=== PATIENT | female | born 1990 | race Caucasian/White ===

== ENCOUNTER 2017-03-24 23:55 | Emergency (ER) | payer MEDICAID ==
[2017-03-25 00:08] VITALS: BP 124/72
--- NOTE | 2017-03-25 00:13 | EDM.PDOC ---
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 This is been going on for the last couple of days. Currently about a week or so ago she had unprotected intercourse. And over the last couple of days has been developing his symptoms. She has a mild to moderate discomfort sometimes aggravated with voiding. And she has a greenish vaginal discharge. Patient denies any fevers or chills no nausea vomiting diarrhea or constipation Vaginal Pain Score (Numeric/FACES): 4 - Related Data Allergies Allergy/AdvReac Type Severity Reaction Status Date / Time No Known Allergies Allergy Verified 03/25/17 00:08 Home Meds: Home Meds metroNIDAZOLE [Flagyl] 500 mg PO Q12H #14 tablet 03/25/17 [Rx] Past Medical History - Past Health History Medical/Surgical History: Denies Medical/Surgical History Social & Family History - Tobacco Use Smoking Status *Q: Never Smoker Second Hand Smoke Exposure: No - Caffeine Use Caffeine Use: Reports: None - Recreational Drug Use Recreational Drug Use: No ED ROS GENERAL - Review of Systems Review Of Systems: See Below Constitutional: Denies: No Symptoms, Fever, Chills HEENT: Reports: No Symptoms Respiratory: Reports: No Symptoms Cardiovascular: Reports: No Symptoms GI/Abdominal: Reports: No Symptoms : Reports: Discharge, Dysuria, Pain. Denies: Flank Pain, Frequency, Hematuria , Irregular Menses, Urgency, Urinary Retention Musculoskeletal: Reports: No Symptoms Skin: Reports: No Symptoms Neurological: Reports: No Symptoms ED EXAM, RENAL/ - Physical Exam Exam: See Below Exam Limited By: No Limitations General Appearance: Alert, No Apparent Distress Head: Atraumatic, Normocephalic Neck: Normal Inspection, Supple, Non-Tender, Full Range of Motion Respiratory/Chest: No Respiratory Distress, Lungs Clear, Normal Breath Sounds Cardiovascular: Regular Rate, Rhythm, No Edema, No Murmur GI/Abdominal: Normal Bowel Sounds, Soft, Non-Tender, No Organomegaly, No Distention, No Abnormal Bruit, No Mass (Female) Exam: Normal External Exam, Normal Bimanual Exam, Cervical Discharge , Other (The patient is a large amount yellow-green discharge. Samples for GC a and Chlamydia obtained from the cervix WILLIE and wet mount obtained bimanual exam is unremarkable). No: Adnexal Mass, Adnexal Tenderness Neurological: Alert, Oriented Psychiatric: Normal Affect Course - Vital Signs Last Recorded V/S: Last Vital Signs Temp 36.3 C 03/25/17 00:04 Pulse 57 L 03/25/17 00:04 Resp 18 03/25/17 00:04 BP 124/72 03/25/17 00:04 Pulse Ox 100 03/25/17 00:04 - Orders/Labs/Meds Orders: Active Orders 24 hr Category Date Time Status GC/CHLAMYDIA BY PCR [MOLEC] Stat Lab 03/25/17 01:25 Received Labs: Laboratory Tests 03/25/17 03/25/17 03/25/17 Range/Units 00:58 00:58 02:35 Urine Color Yellow Yellow (Yellow) Urine Appearance Clear Clear (Clear) Urine pH 6.0 6.5 (5.0-8.0) Ur Specific [place] > or = 1.030 1.020 (1.005-1.030) Urine Protein Trace H Negative (Negative) Urine Glucose (UA) Negative Negative (Negative) Urine Ketones 1+ H Negative (Negative) Urine Occult Blood Negative Negative (Negative) Urine Nitrite Negative Negative (Negative) Urine Bilirubin Negative Negative (Negative) Urine Urobilinogen 0.2 0.2 (0.2-1.0) Ur Leukocyte Esterase 1+ H Trace H (Negative) Urine RBC 0-5 0-5 (0-5) /hpf Urine WBC 20-30 H 5-10 H (0-5) /hpf Ur Epithelial Cells Not Reportable Not Reportable Ur Squamous Epith Cells 0-5 0-5 (0-5) /hpf Urine Bacteria Moderate H Few (FEW) /hpf Urine Mucus Moderate H Few (FEW) /hpf Urine HCG, Qual Negative (NEGATIVE) - Re-Assessments/Exams Free Text/Narrative Re-Assessment/Exam: 03/25/17 02:49 Wet prep positive for trichomoniasis WILLIE negative awaiting testing for GC and Chlamydia 03/25/17 02:58 First urine was suspicious of contamination given it was a clean catch. Repeat urine was obtained with a catheter specimen that looks much better however is still cannot exclude urinary tract infection. At this time will not treat for UTI will await cultures and sensitivities for this. For the patient's cervicitis she'll receive a gram of Zithromax 250 mg of Rocephin. For the Trichomonas tomorrow she will start Flagyl 500 mg twice daily for one week. Departure - Departure Time of Disposition: 03:03 Disposition: Home, Self-Care 01 Clinical Impression: Cervicitis, Trichomonas vaginalis infection - Discharge Information Prescriptions: metroNIDAZOLE [Flagyl] 500 mg PO Q12H #14 tablet Instructions: Sexually Transmitted Disease, [id number] Forms: ED Department Discharge Additional Instructions: Return to the emergency room with any questions or problems. Here in the emergency department you received Rocephin this is a antibiotic, the one that was injected. You also received Zithromax orally a second antibiotic. Your given a prescription for Flagyl this is another antibiotic you'll take this twice daily until all gone. You have a urine culture pending, would not treat for a urinary tract infection at this time unless the culture confirms the presence of infection. Followup in the hospital clinic in one to 2 weeks for recheck. [id number] - My Orders Last 24 Hours: My Active Orders 03/25/17 01:25 GC/CHLAMYDIA BY PCR [MOLEC] Stat - Assessment/Plan Last 24 Hours: My Active Orders 03/25/17 01:25 GC/CHLAMYDIA BY PCR [MOLEC] Stat
[2017-03-25 02:59] LABS: C. TRACHOMATIS BY PCR NOT DETECTED; N. GONORRHOEAE BY PCR NOT DETECTED
[2017-03-25] MEDS ORDERED: cefTRIAXone 250 MG Vial IM ONE (03:01)
[2017-03-25] MEDS ORDERED: Azithromycin 250 MG Tab PO ONE (03:01)
[2017-03-25] MEDS ORDERED: cefTRIAXone 250 MG, Lidocaine 1% 0.5 ML IM ONE ×2 (03:05)
== END 2017-03-25 03:23 | disposition home or self-care (01) ==
LOC: JD.ED 23:55 → MERGE 23:55 → JD.ED 03-25 03:23
DX: A59.01 Trichomonal vulvovaginitis (principal); N72 Inflammatory disease of cervix uteri
CPT/HCPCS: 81001; 81025; 87086; 87210; 87220; 87491; 87591; 87808; 96372; 99284; A9270; J0696; P9612; 99283

== ENCOUNTER 2017-10-25 20:30 | Emergency (ER) | payer MEDICAID ==
[2017-10-25 20:51] VITALS: BP 114/68
--- NOTE | 2017-10-25 20:54 | EDM.PDOC ---
ED HPI GENERAL MEDICAL PROBLEM - General Chief Complaint: ENT Problem Stated Complaint: SORE THROAT Time Seen by Provider: 10/25/17 20:53 Source of Information: Reports: Patient - History of Present Illness INITIAL COMMENTS - FREE TEXT/NARRATIVE: Patient is here for evaluation of sore throat. She states that she has had this for 2 days. She denies any other symptoms, no sinus respiratory or GI symptoms. Patient reports that she does get strep throat on a frequent basis, she states that she wants to have her tonsils out but she just moved here from [facility] and is unsure how to go about this. Patient relocated to the [facility] as that's what her brother lives. She is currently working up [employer]. Patient denies any chronic medical conditions is not on any medications on a regular basis. Patient declines any pain medication. throat Pain Score (Numeric/FACES): 5 - Related Data Allergies Allergy/AdvReac Type Severity Reaction Status Date / Time No Known Allergies Allergy Verified 10/25/17 20:51 Home Meds: Home Meds . [No Known Home Meds] 10/25/17 [History] Past Medical History - Past Health History Medical/Surgical History: Denies Medical/Surgical History HEENT History: Reports: Other (See Below) Other HEENT History: wisdom teeth Social & Family History - Family History Family Medical History: Noncontributory - Tobacco Use Smoking Status *Q: Never Smoker Second Hand Smoke Exposure: No - Caffeine Use Caffeine Use: Reports: Soda - Recreational Drug Use Recreational Drug Use: No ED ROS ENT - Review of Systems Review Of Systems: See Below Constitutional: Denies: Fever, Chills, Weakness, Fatigue HEENT: Reports: Throat Pain, Throat Swelling. Denies: Nose Pain, Rhinitis, Sinus Problem, Vertigo Respiratory: Reports: No Symptoms Cardiovascular: Reports: No Symptoms GI/Abdominal: Reports: No Symptoms Skin: Reports: No Symptoms ED EXAM, ENT - Physical Exam Exam: See Below Exam Limited By: No Limitations General Appearance: Alert, WD/WN, No Apparent Distress Ears: Normal External Exam, Normal Canal, Normal TMs Nose: Normal Inspection, Normal Mucousa Mouth/Throat: Normal Inspection, Normal Gums, Normal Teeth, Tonsillar Erythema, Tonsillar Swelling (3+). No: Tonsillar Exudates Head: Atraumatic, Normocephalic Neck: Normal Inspection, Supple, Full Range of Motion. No: Lymphadenopathy (L) , Lymphadenopathy (R) Respiratory/Chest: No Respiratory Distress, Lungs Clear, Normal Breath Sounds, No Accessory Muscle Use Cardiovascular: Normal Peripheral Pulses, Regular Rate, Rhythm, No Murmur GI/Abdominal: Normal Bowel Sounds, Soft, Non-Tender Neurological: Alert, Oriented Psychiatric: Normal Affect, Normal Mood Skin: Warm, Dry, Intact Lymphatic: No Adenopathy Course - Vital Signs Last Recorded V/S: Last Vital Signs Temp 97.5 F 10/25/17 20:49 Pulse 72 10/25/17 20:49 Resp 18 10/25/17 20:49 BP 114/68 10/25/17 20:49 Pulse Ox 99 10/25/17 20:49 - Orders/Labs/Meds Orders: Active Orders 24 hr Category Date Time Status CULTURE STREP A CONFIRMATION [RM] Stat Lab 10/25/17 20:55 Results STREP SCRN A RAPID W CULT CONF [RM] Stat Lab 10/25/17 20:55 Results - Re-Assessments/Exams Free Text/Narrative Re-Assessment/Exam: Rapid strep is negative, culture is pending. I'm not strongly suspicious of bacterial cause so do not feel antibiotics are indicated at this point. Her tonsils are significantly swollen, will try prednisone to see if this helps decrease the inflammation. Also patient was given a prescription for lidocaine gargle. Recommend rest, fluids, ibuprofen as needed. If patient's symptoms should persist then can follow-up in the clinic or certainly return to the emergency room if needed. 10/25/17 22:04 Departure - Departure Time of Disposition: 22:05 Disposition: Home, Self-Care 01 Condition: Good Clinical Impression: Tonsillitis - Discharge Information Referrals: PCP,None [Primary Care Provider] - Forms: ED Department Discharge Additional Instructions: Rest, maximize oral fluids. Ibuprofen or Tylenol as needed for pain. Follow-up in clinic if symptoms should worsen or persist, you may schedule with Renu Gray PA-C at [phone] or certainly return to ER if needed. - My Orders Last 24 Hours: My Active Orders 10/25/17 20:55 CULTURE STREP A CONFIRMATION [RM] Stat STREP SCRN A RAPID W CULT CONF [RM] Stat - Assessment/Plan Last 24 Hours: My Active Orders 10/25/17 20:55 CULTURE STREP A CONFIRMATION [RM] Stat STREP SCRN A RAPID W CULT CONF [RM] Stat
== END 2017-10-25 22:38 | disposition home or self-care (01) ==
LOC: JD.ED 20:30
DX: J03.90 Acute tonsillitis, unspecified (principal)
CPT/HCPCS: 87081; 87430; 99282; 99283